=== PATIENT | male | born 1945 | race Two or more races ===

== ENCOUNTER 2020-08-14 09:00 | Inpatient (IN) | payer OTHER ==
[~2020-08-14] VITALS: Ht 167.6 cm; Wt 86.0 kg
[2020-08-14] MEDS ORDERED: ASPirin 81 mg TAB PO ONE ×2 (09:15→12:30)
[2020-08-14 09:34] LABS: Basophils # (auto) 0.1 10 ^3/uL (0-0.2); Basophils % (auto) 0.8 % (0.0-2.0); Eosinophils # (auto) 0.2 10 ^3/uL (0-0.8); Eosinophils % (auto) 2.5 % (0.0-7.0); Hematocrit 39.7 % (41.0-53.0); Hemoglobin 13.6 g/dL (13.5-17.5); Lymphocytes # (auto) 4.9 10 ^3/uL (0.4-5.4); Lymphocytes % (auto) 48.2 % (10.0-50.0); Mean Corpuscular Hemoglobin 33.5 pg (28.0-32.0); Mean Corpuscular Hgb Conc. 34.3 g/dL (32.0-36.0); Mean Corpuscular Volume 97.6 fL (80.0-100.0); Monocytes # (auto) 0.9 10 ^3/uL (0-1.3); Monocytes % (auto) 8.4 % (0.0-12.0); Neutrophils # (auto) 4.1 10 ^3/uL (1.6-8.6); Neutrophils % (auto) 40.1 % (37.0-80.0); Nucleated Red Blood Cells % 0.1 %; Platelet Count (auto) 96 10^3/uL (140-450); Red Blood Cells 4.07 10^6/uL (4.5-5.90); White Blood Cell 10.1 10^3/uL (4.4-10.8)
[2020-08-14 10:05] LABS: INR 1.1 (0.9-1.15); Partial Thromboplastin Time 29.7 sec (23.0-31.2)
[2020-08-14] MEDS ORDERED: MORPHINE SULFATE 4 MG/ML SYR/VIAL IV ONE (10:15)
[2020-08-14] MEDS ORDERED: ONDANSETRON HCL 4 MG/2 ML VIAL IV ONE (10:15)
[2020-08-14] MEDS ORDERED: HEPARIN SODIUM (PORCINE) 5000 UNITS/ML 1ML VIAL IV ONE (10:30)
[2020-08-14] MEDS ORDERED: VERAPAMIL 2.5MG/ML INJ 2ML VIAL IV ONE (10:36)
[2020-08-14] MEDS ORDERED: HEPARIN SODIUM (PORCINE) 5000 UNITS/ML 1ML VIAL ONE (10:36)
[2020-08-14] MEDS ORDERED: ANGIOMAX 250 MG VIAL IV ONE (10:36)
[2020-08-14] MEDS ORDERED: MIDAZOLAM HCL 1MG/1ML-2 ML VIAL ONE (10:37)
[2020-08-14] MEDS ORDERED: SODIUM CHL 0.9% 50 ML ONE (10:37)
[2020-08-14] MEDS ORDERED: fentaNYL CITRATE 100 MCG/2 ML VL ONE (10:37)
[2020-08-14 10:52] LABS: Albumin 3.4 g/dL (3.4-5.0); Calcium 8.2 mg/dL (8.5-10.1); Magnesium 2.6 mg/dL (1.6-2.6); Potassium 5.2 mmol/L (3.5-5.1)
[2020-08-14 10:57] LABS: BUN/Creatinine Ratio 23.9; Bilirubin, Total 0.9 mg/dL (0.2-1.0); Total Protein 7.2 g/dL (6.4-8.2)
[2020-08-14] MEDS ORDERED: EPINEPHrine HCL 1 MG/10 ML SYRG ONE (11:12)
[2020-08-14] MEDS ORDERED: ATROPINE SULF 1 MG/10ml SYR ONE (11:12)
[2020-08-14] MEDS ORDERED: IOHEXOL 350 MG/ML 100ML IJ ONE (11:23)
[2020-08-14] MEDS ORDERED: EPTIFIBATIDE INJ (2MG/ML) 10ML VIAL IV ONE (11:26)
[2020-08-14] MEDS ORDERED: EPTIFIBATIDE DRIP(0.75MG/ML) 100 ML IV ONE ×2 (11:26→12:45)
[2020-08-14 11:37] LABS: Magnesium 2.5 mg/dL (1.6-2.6)
[2020-08-14] MEDS ORDERED: KETOROLAC TROMETH 30 MG/ML 1ML VIAL ONE (11:53)
[2020-08-14] MEDS ORDERED: PHENYLEPHRINE HCL 10 MG/ML VL ONE (11:55)
[2020-08-14] MEDS ORDERED: CLOPIDOGREL 300 MG TAB ONE (12:18)
[2020-08-14] MEDS ORDERED: ASPirin 81 mg TAB ONE (12:18)
[2020-08-14] MEDS ORDERED: NOREPINEPHRINE 8 MG/250ML KIT 250 ML IV ONE (12:23)
[2020-08-14] MEDS ORDERED: NITROGLYCERIN 0.4 MG SL TAB SL PRN (12:30)
[2020-08-14] MEDS ORDERED: EPTIFIBATIDE DRIP(0.75MG/ML) 100 ML IV SCH (12:30)
[2020-08-14] MEDS ORDERED: CLOPIDOGREL 300 MG TAB PO ONE (12:30)
[2020-08-14] MEDS ORDERED: MORPHINE SULF INJ 2 MG/ML SYRINGE 1ML IV PRN (12:30)
[2020-08-14 14:56] VITALS: BP 101/69
[2020-08-14 16:00] VITALS: BP 101/69
[2020-08-14 18:45] LABS: Urine Bacteria NONE SEEN /hpf (None Seen); Urine Blood Negative /uL (Negative); Urine WBC <1 /hpf (0 - 3)
[2020-08-14 19:03] LABS: Urine Specific Gravity > 1.050 (1.001-1.035)
[2020-08-14 22:00] VITALS: BP 141/73
[2020-08-14] MEDS ORDERED: ATORVASTATIN 20 MG TAB PO SCH (22:00)
[2020-08-14] MEDS: CARVEDILOL 3.125 MG TAB PO SCH (22:01)
[2020-08-15 05:38] VITALS: BP 137/79
[2020-08-15] MEDS: ALBUTEROL SULF 2.5 MG/0.5ML(0.5%) NEB SOLN NEB SCH ×2 (06:40→10:12)
[2020-08-15] MEDS ORDERED: ALBU2TAB4 INH (06:56)
[2020-08-15] MEDS ORDERED: LACT10PA2 PO (06:56)
[2020-08-15] MEDS ORDERED: TIOTCAP IN (06:56)
[2020-08-15] MEDS ORDERED: FURO40TA4 PO (06:56)
[2020-08-15] MEDS ORDERED: SPIR50TA5 PO (06:56)
[2020-08-15] MEDS ORDERED: FLUT250M2 INH (06:56)
[2020-08-15] MEDS ORDERED: GLIP5TAB12 PO (06:56)
[2020-08-15] MEDS ORDERED: ATEN50TA PO (06:56)
[2020-08-15 08:00] VITALS: BP 126/64
[2020-08-15] MEDS: CARVEDILOL 3.125 MG TAB PO SCH (09:57)
[2020-08-15] MEDS ORDERED: CLOPIDOGREL BISULFATE 75 MG TAB PO SCH (10:00)
[2020-08-15] MEDS ORDERED: LISINOPRIL 5 MG TAB PO SCH (10:00)
[2020-08-15] MEDS ORDERED: ASPirin-EC 81 mg tab PO SCH (10:00)
[2020-08-15] MEDS ORDERED: ALBUTEROL SULF 2.5 MG/0.5ML(0.5%) NEB SOLN NEB PRN (11:30)
[2020-08-15] MEDS ORDERED: SODIUM CHLORIDE 0.9% 1,000 ML IV SCH (11:30)
[2020-08-15] MEDS ORDERED: ASPI-543 PO (11:41)
[2020-08-15] MEDS ORDERED: CLOP75TA28 PO (11:41)
[2020-08-15] MEDS ORDERED: ATOR20TA50 PO (11:41)
[2020-08-15 13:42] VITALS: BP 126/64
== END 2020-08-15 15:15 | disposition home or self-care (01) | DRG 246 ==
LOC: EDBD 09:00 → ER 09:00 → CATH 09:01 → TELE 09:02 → TELE-CENTR 14:56
PROVIDERS: ADMIT Internal Medicine; ATTEND Hospitalist
PROC: 027035Z Dilation of Coronary Artery, One Artery with Two Drug-eluting Intraluminal Devices, Percutaneous Approach (ICD-10-PCS; principal; 2020-08-14)
PROC: 4A023N7 Measurement of Cardiac Sampling and Pressure, Left Heart, Percutaneous Approach (ICD-10-PCS; 2020-08-14)
PROC: B2111ZZ Fluoroscopy of Multiple Coronary Arteries using Low Osmolar Contrast (ICD-10-PCS; 2020-08-14)
PROC: B2151ZZ Fluoroscopy of Left Heart using Low Osmolar Contrast (ICD-10-PCS; 2020-08-14)
PROC: B240ZZ3 Ultrasonography of Single Coronary Artery, Intravascular (ICD-10-PCS; 2020-08-14)
DX: I21.3 ST elevation (STEMI) myocardial infarction of unspecified site (principal); I50.23 Acute on chronic systolic (congestive) heart failure; E11.9 Type 2 diabetes mellitus without complications; E78.00 Pure hypercholesterolemia, unspecified; E78.5 Hyperlipidemia, unspecified; I11.0 Hypertensive heart disease with heart failure; I25.10 Atherosclerotic heart disease of native coronary artery without angina pectoris; K21.9 Gastro-esophageal reflux disease without esophagitis; J44.9 Chronic obstructive pulmonary disease, unspecified; Z79.84 Long term (current) use of oral hypoglycemic drugs; Z82.49 Family history of ischemic heart disease and other diseases of the circulatory system; Z83.3 Family history of diabetes mellitus; Z88.8 Allergy status to other drugs, medicaments and biological substances; Z79.899 Other long term (current) drug therapy; Z20.822 Contact with and (suspected) exposure to COVID-19
CPT/HCPCS: 36415; 71045; 80053; 80061; 81001; 83036; 83735; 83880; 84484; 85025; 85610; 85730; 86850; 86900; 86901; 87426; 92928; 92978; 93306; 93458; 94640; 99152; 99153; 99291; C1874; C1887; G0378; J1885; J2250; J2405